=== PATIENT | male | born 1990 | race African-American/Black ===

== ENCOUNTER 2020-05-08 16:13 | Observation (INO) ==
[2020-05-08] MEDS ORDERED: DIPH/TET/ACEL PERT BOOSTER VACCINE 0.5 ML VIAL IM ONE (16:32)
[2020-05-08] MEDS ORDERED: SODIUM CHLORIDE 0.9% 1,000 ML IV STA (16:32)
[2020-05-08 17:13] LABS: Basophils # 0.1 10*3/uL (0.0-0.2); Basophils % 1.3 % (0.0-0.8); Eosinophils # 0.1 10*3/uL (0.0-0.87); Eosinophils % 1.5 % (0.00-10.9); Hematocrit 44.1 VOL% (42.0-52.0); Immature Granulocytes % 0.7 %; Immature Granulocytes Absolute 0.05 #; Lymphocytes # 2.2 10*3/uL (1.4-4.0); Lymphocytes % 29.3 % (21.2-54.2); Mean Corpuscular HGB Conc 31.7 GM/DL (32-36); Mean Corpuscular Volume 90.2 FL (87-102); Mean Platelet Volume 9.9 FL (9.6-12.0); Monocytes % 11.7 % (1.7-12.7); Neutrophils % 55.5 % (38.7-73.9); Platelet Count 271 T/CUMM (130-400); Red Blood Count 4.89 MC/CUMM (3.8-5.5); Red Cell Distribution Width 12.7 % (9.3-17.3); White Blood Count 7.4 T/CUMM (4-12)
[2020-05-08 17:33] LABS: Calcium 9.1 MG/DL (8.5-10.1); Osmolality,Calculated 271.8 MOS/KG (273-304)
[2020-05-08] MEDS ORDERED: DIAZEPAM 5 MG TABLET PO ONE (17:45)
[2020-05-08] MEDS ORDERED: FAMOTIDINE 20 MG TABLET PO ONE (17:45)
[2020-05-08] MEDS ORDERED: ALBUTEROL 2.5 MG/3 ML NEB RESP TX ONE (17:45)
[2020-05-08] MEDS ORDERED: LACTATED RINGERS 1,000 ML IV SCH (18:00)
[2020-05-08] MEDS ORDERED: SUGAMMADEX 200 MG/2 ML VIAL IV ONE (18:56)
[2020-05-08] MEDS ORDERED: MORPHINE 4 MG/1 ML VIAL IV PRN (19:00)
[2020-05-08] MEDS ORDERED: MAGNESIUM HYDROXIDE SUSP 30 ML UDCUP PO PRN (19:00)
[2020-05-08] MEDS ORDERED: ONDANSETRON 4 MG/2 ML VIAL IV PRN (19:00)
[2020-05-08] MEDS ORDERED: MIDAZOLAM 2 MG/2 ML VIAL ONE (19:33)
[2020-05-08] MEDS ORDERED: LIDOCAINE 2% 5 ML VIAL ONE (19:33)
[2020-05-08] MEDS ORDERED: SEVOFLURANE 1 UNIT/15 MINUTE INH ONE (19:33)
[2020-05-08] MEDS ORDERED: propofoL 200 MG/20 ML VIAL IV ONE (19:33)
[2020-05-08] MEDS ORDERED: ROCURONIUM 100 MG/10 ML VIAL IV ONE (19:34)
[2020-05-08] MEDS ORDERED: SUCCINYLCHOLINE 200 MG/10 ML VIAL ONE (19:34)
[2020-05-08] MEDS ORDERED: DEXAMETHASONE 4 MG/1 ML VIAL ONE (19:34)
[2020-05-08] MEDS ORDERED: LACTATED RINGERS 1,000 ML IV ONE (19:34)
[2020-05-08] MEDS ORDERED: fentaNYL 100 MCG/2 ML VIAL ONE (19:34)
[2020-05-08] MEDS ORDERED: ONDANSETRON 4 MG/2 ML VIAL ONE (19:34)
[2020-05-09] MEDS: ceFAZolin 2,000 MG in PREMIX 1 EACH IV SCH ×2 (01:07→09:44)
[2020-05-09 11:21] VITALS: BP 147/86
[2020-05-09] MEDS ORDERED: ASPIRIN 325 MG TABLET PO SCH (19:30)
== END 2020-05-09 12:14 | disposition home or self-care (01) ==
LOC: EDBD → EDUNIT# → N.EDINP 16:13 → N.ED 16:13 → N.3W 18:30
PROVIDERS: ADMIT Orthopaedic Surgery; ATTEND Orthopaedic Surgery